=== PATIENT | female | born 1960 | race Two or more races ===

== ENCOUNTER 2016-08-04 15:15 | Emergency (ER) | payer MEDICAID, OTHER ==
[~2016-08-04] VITALS: Ht 157.5 cm; Wt 79.8 kg
[~2016-08-04 15:15] MED LIST: LEVO100T69; RABE20TA5
[2016-08-04 16:16] VITALS: BP 178/105
[2016-08-04] MEDS ORDERED: KETOROLAC TROMETH 60MG/2ML VIAL IM ONE (16:45)
== END 2016-08-04 17:51 | disposition home or self-care (01) ==
LOC: ER 15:22
DX: M47.816 Spondylosis without myelopathy or radiculopathy, lumbar region (principal); E07.9 Disorder of thyroid, unspecified; Z90.89 Acquired absence of other organs; Z90.710 Acquired absence of both cervix and uterus; Z90.49 Acquired absence of other specified parts of digestive tract
CPT/HCPCS: 72110; 96372; 99284; J1885

== ENCOUNTER 2016-09-26 22:25 | Emergency (ER) | payer MEDICAID ==
[~2016-09-26] VITALS: Ht 157.5 cm; Wt 77.6 kg
[2016-09-26 22:33] VITALS: BP 160/86
[2016-09-26 23:12] LABS: Basophils # (auto) 0.1 uL; Basophils % (auto) 1.4 % (0.0-2.0); Eosinophils # (auto) 0.5 uL; Eosinophils % (auto) 5.4 % (0.0-7.0); Hematocrit 40.3 % (36.0-46.0); Hemoglobin 13.5 g/dL (12.2-16.2); Lymphocytes # (auto) 2.3 uL; Lymphocytes % (auto) 23.1 % (10.0-50.0); Mean Corpuscular Hgb Conc. 33.5 g/dL (32.0-36.0); Mean Corpuscular Volume 89.5 fL (80.0-100.0); Mean Platelet Volume 8.4 fL (7.4-10.4); Monocytes # (auto) 0.9 uL; Monocytes % (auto) 9.1 % (0.0-12.0); Neutrophils # (auto) 6.1 uL; Platelet Count (auto) 335 10^3/uL (140-450); Red Cell Distribution Width 14.1 % (11.6-16.0); White Blood Cell 9.9 10^3/uL (4.4-10.8)
[2016-09-26 23:29] LABS: INR 0.95 (0.9-1.15); Partial Thromboplastin Time 24.6 sec (22.64-33.71); Prothrombin Time 9.8 sec (9.37-12.3)
[2016-09-26 23:30] LABS: Albumin 3.9 g/dL (3.4-5.0); Anion Gap 9 (5-15); Aspartate Aminotransferase 18 U/L (15-37); BUN/Creatinine Ratio 15.5; Blood Urea Nitrogen 23 mg/dL (7-18); Carbon Dioxide 25 mmol/L (21-32); Chloride 110 mmol/L (98-107); GFR African American 47 mL/min; GFR Non-African American 39 mL/min; Glucose 87 mg/dL (74-106); Magnesium 2.3 mg/dL (1.6-2.6); Potassium 4.2 mmol/L (3.5-5.1); Sodium 144 mmol/L (136-145)
[2016-09-26 23:35] LABS: Alkaline Phosphatase 105 U/L (45-117); Bilirubin, Total 0.2 mg/dL (0.2-1.0)
[2016-09-26 23:37] LABS: Urine Bilirubin Negative (Negative); Urine Blood Negative /uL (Negative); Urine Color Yellow (Yellow); Urine Glucose Normal (Normal); Urine Ketone Negative (Negative); Urine Nitrite Negative (Negative); Urine RBC <1 /hpf (0 - 4); Urine Sperm PRESENT /hpf (None Seen); Urine Squamous Epithelial Cell FEW /hpf (<5)
== END 2016-09-27 07:43 | disposition left against medical advice (07) ==
LOC: ER 22:28
DX: R07.9 Chest pain, unspecified (principal); Z53.21 Procedure and treatment not carried out due to patient leaving prior to being seen by health care provider
CPT/HCPCS: 36415; 71010; 80053; 81001; 83735; 84484; 85025; 85610; 85730; 93005